=== PATIENT | female | born 1980 | race American Indian/Alaskan Native ===

== ENCOUNTER 2016-03-11 06:59 | Outpatient (CLI) | payer BC, MEDICAID ==
[2016-03-11] MEDS ORDERED: LACTATED RINGERS 500 ML IV ONE (07:50)
[2016-03-11 08:11] LABS: Bacteria,Urine 1+ /HPF (Negative); Bilirubin,Urine NEG (Negative); Blood,Urine LG (Negative); Ketones,Urine NEG (Negative); Leukocyte Esterase,Urine NEG (Negative); Mucus,Urine 1+ /HPF; Nitrite,Urine NEG (Negative); Protein,Urine <15 mg/dL mg/dL (Negative); Urobilinogen,Urine < 2.0 mg/dL (<2.0)
[2016-03-11 09:04] VITALS: BP 131/78
--- NOTE | 2016-03-11 10:10 | Ultrasound Report ---
Limited OB sonogram: History: Vaginal bleeding. Findings: Gestation: Single Position: Cephalic Heart Rate: 154 BPM Cervical length: 3.2 cm (Normal > 3 cm)
== END 2016-03-11 11:00 | disposition home or self-care (01) ==
LOC: TRG 06:59
PROVIDERS: ATTEND Obstetrics & Gynecology
DX: O46.90 Antepartum hemorrhage, unspecified, unspecified trimester (principal); O77.9 Labor and delivery complicated by fetal stress, unspecified; O47.9 False labor, unspecified; Z3A.00 Weeks of gestation of pregnancy not specified
CPT/HCPCS: 59025; 76815; 81001

== ENCOUNTER 2016-06-07 18:57 | Outpatient (CLI) | payer BC, MEDICAID ==
[2016-06-07 20:07] VITALS: BP 135/88
== END 2016-06-07 20:21 | disposition home or self-care (01) ==
LOC: TRG 18:57
PROVIDERS: ATTEND Obstetrics & Gynecology
DX: O09.523 Supervision of elderly multigravida, third trimester (principal); O36.8130 Decreased fetal movements, third trimester, not applicable or unspecified; O26.893 Other specified pregnancy related conditions, third trimester; R10.9 Unspecified abdominal pain; O47.1 False labor at or after 37 completed weeks of gestation; Z3A.37 37 weeks gestation of pregnancy
CPT/HCPCS: 59025

== ENCOUNTER 2016-06-11 20:44 | Outpatient (CLI) | payer BC, MEDICAID ==
[2016-06-11 21:47] LABS: Bilirubin,Urine NEG (Negative); Blood,Urine NEG (Negative); Ketones,Urine TR mg/dL (Negative); Leukocyte Esterase,Urine NEG (Negative); Mucus,Urine 2+ /HPF; Nitrite,Urine NEG (Negative); Urobilinogen,Urine < 2.0 mg/dL (<2.0)
[2016-06-11 21:51] LABS: Hemoglobin 9.6 gm/dl (10.1-14.3); Mean Corpuscular HGB Conc 33 % (30-34); Mean Corpuscular Hemoglobin 28 pg (28-32); Mean Corpuscular Volume 86 fl (79-97); Platelet Count 260 K/mm3 (140-440); Red Blood Count 3.38 M/mm3 (3.65-5.03); Red Cell Distribution Width 15.6 % (13.2-15.2); White Blood Count 6.9 K/mm3 (4.5-11.0)
[2016-06-11 22:27] LABS: Alanine Aminotransferase 16 units/L (7-56); Lactate Dehydrogenase 167 units/L (91-180); Uric Acid 4.3 mg/dL (3.5-7.6)
[2016-06-11 23:55] VITALS: BP 135/88
== END 2016-06-12 00:15 | disposition home or self-care (01) ==
LOC: TRG 20:44
PROVIDERS: ATTEND Obstetrics & Gynecology
DX: O09.523 Supervision of elderly multigravida, third trimester (principal); O47.1 False labor at or after 37 completed weeks of gestation; Z3A.37 37 weeks gestation of pregnancy
CPT/HCPCS: 36415; 59025; 81001; 82565; 83615; 84450; 84460; 84550; 85027